=== PATIENT | female | born 1965 | race Caucasian/White ===

== ENCOUNTER 2016-07-29 12:54 | Emergency (ER) | payer SELFPAY ==
[~2016-07-29] VITALS: Ht 152.4 cm; Wt 72.5 kg
[~2016-07-29 12:54] MED LIST: ACET-514 PO; AZIT250T94 PO; CODE118S PO; IBUP-1542 PO
[2016-07-29 12:57] VITALS: Ht 152.4 cm; Wt 72.5 kg
[2016-07-29] MEDS ORDERED: AZIT250T94 PO (13:33)
[2016-07-29] MEDS ORDERED: IBUP-1542 PO (13:33)
[2016-07-29] MEDS ORDERED: D-ME473S18 PO (13:33)
--- NOTE | 2016-07-29 13:35 | ERD ---
ER Documentation Chief Complaint Date/Time DATE: 07/29/16 TIME: 13:34 Chief Complaint Complains of fever x 2 days HPI This 50-year-old female presents with fever and cough for last 6 days productive sputum. Denies chest pain, vomiting or diarrhea. She had one episode of vomiting, nonbilious nonbloody. She has no headache, neck stiffness or rashes. ROS All systems reviewed and are negative except as per history of present illness. Medications Home Meds Active Scripts Azithromycin* (Zithromax*) 250 Mg Tablet, 250 MG PO .ZPACK DIRECTED, #6 TAB TAKE 500 MG (2 TABS) THE FIRST DAY THEN 250 MG (1 TAB) DAYS 2-5 Prov:RAY BELLO MD 07/29/16 Dextromethorphan Hb-Promethazine Hcl (Promethazine DM Syrup) 473 Ml Syrup, 5 ML PO Q6H Y for COUGH, #4 OZ Prov:RAY BELLO MD 07/29/16 Ibuprofen* (Motrin*) 600 Mg Tab, 600 MG PO Q6, #15 TAB Prov:RAY BELLO MD 07/29/16 Ibuprofen* (Ibuprofen*) 600 Mg Tablet, 600 MG PO Q8, #10 TAB Prov:CHARLEEN MARAVILLA DO 08/07/15 Acetaminophen (Acetaminophen) 325 Mg Tablet, 650 MG PO Q6 Y for FEVER, #20 TAB Prov:CHARLEEN MARAVILLA DO 08/07/15 Promethazine w/Codeine (Phenergan w/Codeine Syrup) 5 Ml Syrup, 5 ML PO Q6 Y for COUGH, #120 ML Prov:CHARLEEN MARAVILLA DO 08/07/15 Azithromycin* (Zithromax*) 250 Mg Tablet, 250 MG PO .ZPACK DIRECTED, #6 TAB TAKE 500 MG (2 TABS) THE FIRST DAY THEN 250 MG (1 TAB) DAYS 2-5 Prov:CHARLEEN MARAVILLA DO 08/07/15 Allergies Allergies: Coded Allergies: No Known Drug Allergies (Verified Allergy, Unknown, 08/07/15) PMhx/Soc Medical and Surgical Hx: pt denies Medical Hx, pt denies Surgical Hx Hx Alcohol Use: No Hx Substance Use: No Hx Tobacco Use: No Physical Exam Vitals Vital Signs Date Time Temp Pulse Resp B/P Pulse Ox O2 Delivery O2 Flow Rate FiO2 07/29/16 12:57 98.3 71 20 110/69 98 Physical Exam Const: [] Alert, [id number] per Head: Atraumatic Eyes: Normal Conjunctiva ENT: Normal External Ears, Nose and Mouth. TMs and oropharynx normal. Neck: Full range of motion..~ No meningismus. Resp: Clear to auscultation bilaterally. Noticeable dry cough. Cardio: Regular rate and rhythm, no murmurs Abd: Soft, non tender, non distended. Normal bowel sounds Skin: No petechiae or rashes Back: No midline or flank tenderness Ext: No cyanosis, or edema. No calf swelling or Homans sign. Neur: Awake and alert Psych: Normal Mood and Affect Procedures/MDM Patient presents with productive cough for last week subjective fever without fever triage no signs of hypoxemia, respiratory distress, signs of pneumonia acute acute abdomen. She will be treated with Zithromax, promethazine and ibuprofen . The patient was stable with no new complaints during the ER course. Clinically, there is no current evidence to suggest meningitis, sepsis, acute abdomen, pneumonia, acute coronary syndrome, pulmonary embolism, or any other emergent condition appearing to require further evaluation or hospitalization. The patient should certainly return for any new or worsening symptoms per the aftercare instructions. They should otherwise follow-up with her primary care doctor for reevaluation this week. Departure Diagnosis: Primary Impression: Fever Fever type: unspecified Qualified Code: R50.9 - Fever, unspecified fever cause Additional Impression: Acute bronchitis Bronchitis organism: unspecified organism Qualified Code: J20.9 - Acute bronchitis, unspecified organism Condition: Stable Patient Instructions: Acute Bronchitis, Fever Control (Adult) Additional Instructions: Cheque otro vez con cha doctor primario en el proximo garza or regresa para mas o nueva simptomas. ARY BELLO MD Jul 29, 2016 13:35
== END 2016-07-29 13:40 | disposition home or self-care (01) ==
LOC: FTE 12:54
DX: R50.9 Fever, unspecified (principal); J20.9 Acute bronchitis, unspecified
CPT/HCPCS: 99284

== ENCOUNTER 2017-12-15 09:15 | Emergency (ER) | END 2017-12-15 12:10 | disposition home or self-care (01) ==